=== PATIENT | female | born 1970 | race Caucasian/White ===

== ENCOUNTER 2022-08-12 21:42 | Emergency (ER) | payer MEDICAID ==
[2022-08-12] MEDS ORDERED: Sodium Chloride 0.9% 1,000 ML IV ONE ×2 (21:46→21:48)
[2022-08-12] MEDS ORDERED: VANCOmycin 1.75 GM/350 ML 1.75 GM in Premix Bag 1 BAG IV ONE (22:15)
[2022-08-12] MEDS ORDERED: Meropenem Premix 50 ML IV ONE (23:52)
[2022-08-13] MEDS ORDERED: Sodium Chloride 0.9% 1,000 ML IV ONE ×5 (00:08→05:59)
[2022-08-13 00:23] LABS: ACETAMINOPHEN 3.7 ug/mL
[2022-08-13 00:36] LABS: BLOOD UREA NITROGEN,BUN 34 mg/dL (7.0-18.0); CARBON DIOXIDE,CO2 15.6 mmol/L (21.0-32.0); CHLORIDE,CL 108 mmol/L (98-107); ESTIMATED GFR 34 mL/min (>60); GLUCOSE RANDOM 49 mg/dL (74-106); LIPASE 1050 U/L (73-393); POTASSIUM,K 4.4 mmol/L (3.5-5.1); SODIUM,NA 139 mmol/L (136-145)
[2022-08-13] MEDS ORDERED: fentaNYL 50 MCG/ML SDV IVPUSH ONE ×2 (01:20→03:38)
[2022-08-13] MEDS ORDERED: Norepinephrine 4 MG in Dextrose 5% in Water 246 ML IV SCH ×2 (01:45)
[2022-08-13] MEDS ORDERED: Norepinephrine Bit/D5W Premix 250 ML ONE (01:51)
[2022-08-13 04:14] LABS: CARBON DIOXIDE,CO2 15.6 mmol/L (21.0-32.0); POTASSIUM,K 4.5 mmol/L (3.5-5.1)
[2022-08-13] MEDS ORDERED: HYDROmorphone 1 MG/ML Syringe IVPUSH ONE (07:14)
[2022-08-13] MEDS ORDERED: Norepinephrine Bit/D5W Premix 250 ML IV SCH (08:00)
[2022-08-13] MEDS ORDERED: Meropenem Premix 1 GM in Premix Bag 1 BAG IV SCH (12:00)
== END 2022-08-13 09:07 ==
LOC: MW.ED 21:42
DX: K85.90 Acute pancreatitis without necrosis or infection, unspecified (principal); K56.49 Other impaction of intestine; I10 Essential (primary) hypertension; E66.9 Obesity, unspecified; Z90.49 Acquired absence of other specified parts of digestive tract; Z88.0 Allergy status to penicillin; Z88.1 Allergy status to other antibiotic agents; Z88.5 Allergy status to narcotic agent; Z88.8 Allergy status to other drugs, medicaments and biological substances; Z20.822 Contact with and (suspected) exposure to COVID-19; Z68.25 Body mass index [BMI] 25.0-25.9, adult
CPT/HCPCS: 36415; 36556; 71045; 74176; 80053; 80143; 80179; 80202; 80305; 80307; 81001; 82140; 82803; 82947; 83605; 83690; 83735; 84484; 85025; 85610; 85730; 87040; 87635; 93005; 96361; 96365; 96366; 96367; 96375; 96376; 99285; J1170; J2185; J3010; J3370; J7030; 93010; 99291; J3490; U0002